=== PATIENT | male | born 2000 | race Caucasian/White ===

== ENCOUNTER 2023-01-05 14:57 | Emergency (ER) | payer OTHER, BC ==
[2023-01-05] MEDS ORDERED: Diphtheria,Pertussis(Acell),Tetanus Vaccine 0.5 ML Syringe IM ONE (15:18)
[2023-01-05] MEDS ORDERED: Bacitracin Oint 1 GM U/D Packet TOP ONE (15:38)
== END 2023-01-05 16:19 | disposition home or self-care (01) ==
LOC: JP.ED 14:57
DX: S61.511A Laceration without foreign body of right wrist, initial encounter (principal); Z23 Encounter for immunization; Z88.0 Allergy status to penicillin; W26.8XXA Contact with other sharp object(s), not elsewhere classified, initial encounter; Y99.0 Civilian activity done for income or pay
CPT/HCPCS: 12001; 90471; 90715; 99282; 99282-25